=== PATIENT | male | born 1955 | race African-American/Black ===

== ENCOUNTER 2019-04-16 00:59 | Inpatient (IN) | payer BC, MEDICAID ==
[~2019-04-16] VITALS: Ht 185.4 cm; Wt 60.8 kg
--- NOTE | 2019-04-16 01:00 | NUR ---
PT [id number] FROM [facility] C/O SOB X 1 DAY, PATIENT HAD +CXR R SIDE PNEUMOTHORAX. PT AOX4. PT ON MONITOR IN BED 5. WILL CONTINUE TO MONITOR.
[2019-04-16] MEDS ORDERED: LIDOCAINE MPF 1%-EPI 1:200,000 30 ML VIAL IJ ONE (01:16)
--- NOTE | 2019-04-16 01:26 | NUR ---
PHLEB AT BEDSIDE FOR LAB DRAW
[2019-04-16] MEDS ORDERED: MORPHINE SULFATE INJ 4 MG/ML DISP.SYRIN ONE ×2 (01:27→05:02)
[2019-04-16] MEDS ORDERED: MORPHINE SULFATE INJ 2 MG/ML DISP.SYRIN IV ONE ×2 (01:30→05:00)
[2019-04-16] MEDS ORDERED: LIDOCAINE 1%-EPI 1:100,000 50 ML VIAL IJ ONE (01:30)
[2019-04-16 01:39] LABS: BASOPHILS # (AUTO) 0.1 /CMM (0.0-0.2); BASOPHILS % (AUTO) 1.7 % (0.0-2.0); HEMATOCRIT 38 % (39-51); HEMOGLOBIN 12.1 g/dL (13.5-17.5); LYMPHOCYTES % (AUTO) 20.1 % (20.0-44.0); MEAN CORPUSCULAR HGB CONC 32 g/dl (31.0-36.0); MEAN CORPUSCULAR VOLUME 90 fL (80-96); MONOCYTES # (AUTO) 0.4 /CMM (0.1-1.30); MONOCYTES % (AUTO) 8.7 % (2.0-12.0); NEUTROPHILS # (AUTO) 3.1 /CMM (1.8-8.9); NEUTROPHILS % (AUTO) 63.5 % (43.0-81.0); PLATELET COUNT (AUTO) 79 /CMM (150-450); RED BLOOD CELL COUNT(AUTO) 4.28 MIL/uL (4.5-6.0); WHITE BLOOD COUNT (AUTO) 4.9 K/uL (4.3-11.0)
[2019-04-16 01:40] LABS: CALCIUM, SERUM 8.7 mg/dL (8.5-10.1); CARBON DIOXIDE 30 mmol/L (21-32); CHLORIDE 106 mmol/L (98-107); CREATININE 1.1 mg/dL (0.6-1.3); GLUCOSE 110 mg/dL (74-106); POTASSIUM 4.2 mmol/L (3.5-5.1); SODIUM SERUM 143 mmol/L (136-145); UREA NITROGEN, BLOOD 33 mg/dL (7-18)
--- NOTE | 2019-04-16 01:45 | NUR ---
DR. SHEPARD AT BEDSIDE FOR CHEST TUBE PLACEMENT
[2019-04-16 02:49] LABS: EOSINOPHILS % (MANUAL) 2 % (0-4); LYMPHOCYTES % (MANUAL) 21 % (16-48); MONOCYTES % (MANUAL) 7 % (0-11.0); NEUTROPHILS % (MANUAL) 70 (42-76)
[2019-04-16] MEDS ORDERED: Z GUARD REMEDY 2 OZ OINT TP PRN (05:00)
[2019-04-16] MEDS ORDERED: ONDANSETRON HCL/PF 4 MG/2 ML VIAL IVP PRN (05:00)
[2019-04-16] MEDS ORDERED: MAGNESIUM HYDROXIDE 30 ML UDC PO PRN ×2 (05:00→08:30)
[2019-04-16] MEDS ORDERED: ACETAMINOPHEN 325 MG TABLET PO PRN ×2 (05:00→08:30)
[2019-04-16] MEDS ORDERED: MAG HYDROX/AL HYDROX/SIMETH 30 ML UDC PO PRN (05:00)
--- NOTE | 2019-04-16 05:10 | NUR ---
BED 321-1
--- NOTE | 2019-04-16 05:26 | NUR ---
PT RESTING COMFORTABLY IN BED. VSS. WILL CONTINUE TO MONITOR.
--- NOTE | 2019-04-16 05:30 | NUR ---
BED 327-2
--- NOTE | 2019-04-16 05:34 | NUR ---
REPORT GIVEN TO BILLY SOARES FOR SHARA
--- NOTE | 2019-04-16 06:10 | NUR ---
TAR HEATER OPERATOR OPENING NOTES: RECEIVED PT ON 10LPM VIA NONREBREATHER MASK AND IS TOLERATING WELL. PT ARRIVED WITH CHEST TUBE ON RIGHT UPPER/MEDIAL SIDE DRAINING SEROSANGUINEOUS/YELLOW FLUID. IV NOTED ON L FOREARM #18G AND IS PATENT AND INTACT. CURRENTLY H/L. DRESSING ON CHEST TUBE INTACT AND KEPT CLEAN AND DRY. BED ALARM ACTIVATED. BED KEPT IN LOW, LOCKED POSITION, AND SIDE RAILS X 2UP. 2CM H20 SUCTION NOTED ON CHEST TUBE DRY SUCTION WATER SEAL. NO AIR LEAKS. PT ON TELE BOX. READING SHOWS SINUS RHYTHM WITH BBBS.
[2019-04-16 06:15] VITALS: BP 146/94
[2019-04-16] MEDS ORDERED: MAGN400O6 PO (07:42)
[2019-04-16] MEDS ORDERED: IPRA0.2S9 IH (07:42)
[2019-04-16] MEDS ORDERED: LEVA1.2528 IH (07:42)
[2019-04-16] MEDS ORDERED: MULT-447 PO (07:42)
[2019-04-16] MEDS ORDERED: DILT120C87 PO (07:42)
[2019-04-16] MEDS ORDERED: CARV6.25 PO (07:42)
[2019-04-16] MEDS ORDERED: BISA10SU11 RC (07:42)
[2019-04-16] MEDS ORDERED: TAMS-12 PO (07:42)
[2019-04-16] MEDS ORDERED: BUDE10.2 IH (07:42)
[2019-04-16] MEDS ORDERED: FURO-144 PO (07:42)
[2019-04-16] MEDS ORDERED: ASPI-1152 PO (07:42)
[2019-04-16] MEDS ORDERED: ASCO500T9 PO (07:42)
[2019-04-16] MEDS ORDERED: GABA-532 PO (07:42)
[2019-04-16] MEDS ORDERED: SENN-168 PO (07:42)
[2019-04-16] MEDS ORDERED: ACET-2605 PO (07:42)
[2019-04-16] MEDS ORDERED: HYDR-4076 PO (07:42)
[2019-04-16] MEDS ORDERED: ACET-868 PO (07:42)
[2019-04-16] MEDS ORDERED: NA P133E RC (07:42)
[2019-04-16] MEDS ORDERED: PANT40TA2 PO (07:42)
--- NOTE | 2019-04-16 07:46 | NUR ---
ENTRY MANAGER CLOSING NOTES: PT REMAINS ON 10LPM VIA NONREBREATHER MASK AND IS TOLERATING WELL. PT REMAINS CHEST TUBE ON RIGHT UPPER/MEDIAL SIDE DRAINING SEROSANGUINEOUS/YELLOW FLUID. MARKED AT 650ML. IV NOTED ON L FOREARM #18G AND IS PATENT AND INTACT. CURRENTLY H/L. DRESSING ON CHEST TUBE INTACT AND KEPT CLEAN AND DRY. BED ALARM ACTIVATED. BED KEPT IN LOW, LOCKED POSITION, AND SIDE RAILS X 2UP. 2CM H20 SUCTION NOTED ON CHEST TUBE DRY SUCTION WATER SEAL. NO AIR LEAKS. PT ON TELE BOX. READING SHOWS SINUS RHYTHM WITH BBBS. WILL ENDORSED TO AM NURSE FOR SHARA.
--- NOTE | 2019-04-16 07:50 | NUR ---
ATLASSIAN ADMINISTRATOR NOTES PT IN BED, AWAKE, ALERT AND ORIENTED, WITH COMPLAINT OF SLIGHT SORENESS AT CHEST TUBE SITE AT RIGHT UPPER SIDE OF CHEST, NO SOB, ON 10LPM OF O2 VIA NON REBREATHER MASK, CALL LIGHT WITHIN REACH, KEPT COMFORTABLE, WILL CONTINUE TO MONITOR.
[2019-04-16 08:00] VITALS: BP 136/93
[2019-04-16] MEDS ORDERED: NA PHOS,M-B/NA PHOS,DI-BA 1 EA ENEMA RC PRN (08:30)
[2019-04-16] MEDS: HYDROCODONE/APAP 5/325MG 1 EACH TABLET PO PRN ×2 (08:30→14:21)
[2019-04-16] MEDS ORDERED: hydrALAZINE HCL 25 MG TABLET PO PRN (08:30)
[2019-04-16] MEDS ORDERED: IPRATROPIUM NEB FS 0.5 MG/2.5 ML AMPUL.NEB IH PRN (08:30)
[2019-04-16] MEDS ORDERED: BISACODYL SUPP (10 MG) 10 MG/SUPP.RECT SUPP.RECT RC PRN (08:30)
[2019-04-16] MEDS: DILTIAZEM HCL CD 120 MG PO SCH ×2 (09:00→09:37)
[2019-04-16] MEDS: ASCORBIC ACID 500 MG TABLET PO SCH ×2 (09:00→09:37)
[2019-04-16] MEDS: CARVEDILOL 6.25 MG TABLET PO SCH ×2 (09:37→21:00)
[2019-04-16] MEDS: GABAPENTIN 100 MG CAPSULE PO SCH ×3 (09:37→16:14)
[2019-04-16] MEDS: FUROSEMIDE 40 MG TABLET PO SCH (09:37)
[2019-04-16] MEDS: TAMSULOSIN 0.4 MG CAP.SR.24H PO SCH (09:37)
[2019-04-16] MEDS: MULTIVIT W/MINERALS 1 TAB TABLET PO SCH (09:37)
[2019-04-16] MEDS: ASPIRIN EC 81 MG TABLET.DR PO SCH (09:37)
[2019-04-16] MEDS: ENSURE ENLIVE 237 ML LIQUID (VANILLA) PO SCH ×3 (09:42→17:30)
--- NOTE | 2019-04-16 10:09 | NUR ---
MUFFLE OPERATOR NOTES PT IN BED, RESTING, STATED THAT HIS PAIN IS BETTER, SEEN BY DR. ARRIOLA AND DR. FUCHS, PLAN OF CARE DISCUSSED WITH PT, VERBALIZED UNDERSTANDING, NEEDS ATTENDED, NO SOB, WILL CONTINUE TO MONITOR.
[2019-04-16 12:00] VITALS: BP 105/73
[2019-04-16] MEDS ORDERED: ALBUTEROL FS 2.5 MG/0.5 ML VIAL.NEB NEB PRN (13:30)
[2019-04-16 16:00] VITALS: BP 97/59
[2019-04-16 16:30] VITALS: BP 140/87
--- NOTE | 2019-04-16 18:11 | NUR ---
PORCELAIN TECHNICIAN NOTES PT IN BED, AWAKE, ALERT AND ORIENTED, NO COMPLAINT OF PAIN AT THIS TIME, NO SOB, KEPT AT 1OLPM VIA NON REBREATHER MASK, PM MEDS GIVEN, CHEST TUBE AT RIGHT LATERAL UPPER CHEST IN PLACE, DRAINING MINIMALLY WITH YELLOWISH DRAIN, CALL LIGHT WITHIN REACH, ALL NEEDS ATTENDED.
--- NOTE | 2019-04-16 19:30 | NUR ---
RECEIVED PATIENT IN BED AWAKE. AO X 3, ABLE TO MAKE NEEDS KNOWN. NO ACUTE DISTRESS NOTED. DENIES ANY PAIN AT THIS TIME. IV SITE PATENT, INTACT; FLUSHED. RIGHT UPPER CHEST TUBE PATENT, INTACT; DRAINING SEROSANGUINOUS FLUID VIA SUCTION. SAFETY REMINDERS GIVEN. ON LOW BED WITH BILATERAL UPPER SIDE RAILS UP. CALL IVORY WITHIN EASY REACH. WILL CONTINUE TO MONITOR.
[2019-04-16 20:00] VITALS: BP 90/57
[2019-04-16] MEDS: SENNOSIDES 8.6 MG TABLET PO SCH (21:28)
[2019-04-17] VITALS: BP 90/56
[2019-04-17] MEDS: HYDROCODONE/APAP 5/325MG 1 EACH TABLET PO PRN ×3 (00:12→10:58)
[2019-04-17 04:00] VITALS: BP 118/74
--- NOTE | 2019-04-17 06:00 | NUR ---
PATIENT ASLEEP, EASILY AROUSABLE. RESPIRATIONS EVEN. NO SIGNS OF PAIN NOTED. CHEST TUBE INTACT; DRAINED 220 ML THIS SHIFT. DRESSING INTACT. DUE MED GIVEN WITH NO ASE NOTED. COREG HELD DUE TO DECREASED BP. NEEDS ATTENDED. SAFETY PRECAUTIONS AND COMFORT MEASURES IN PLACE. WILL GIVE REPORT TO DAY SHIFT FOR CONTINUITY OF CARE.
--- NOTE | 2019-04-17 07:26 | NUR ---
ECMO SPECIALIST NOTES PATIENT RECEIVED RESTING INSIDE ROOM. AWAKE, ALERT AND ORIENTED X 3, NO ACUTE DISTRESS. VERBALLY RESPONSIVE. PATIENT DENIES ANY PAIN OR DISCOMFORT. NO CHANGES IN LOC NOTED. PATIENT CALM AND RELAXED. CHEST TUBE CONNECTED ON RIGHT CHEST, WITH SEROSANGUINEOUS/YELLOW FLUID DRAINING IN CANISTER MARKED ON 1020 ML WHEN PATIENT WAS RECEIVED. O2 IN PLACE @ 10L/MIN VIA NRM. CONTINUE ON TELEMETRY, CONSUMER MARKETING MANAGER IN PLACE, SR 2ITH BBB. WILL CONTINUE TO MONITOR. BED LOCKED AND IN LOW POSITION. BILATERAL UPPER SIDE RAILS UP AND LOCKED. CALL LIGHT WITHIN EASY REACH
[2019-04-17 08:00] VITALS: BP 119/83
[2019-04-17 08:12] LABS: BASOPHILS % (AUTO) 1.4 % (0.0-2.0); EOSINOPHILS % (AUTO) 8.5 % (0.0-6.0); HEMATOCRIT 38 % (39-51); HEMOGLOBIN 11.8 g/dL (13.5-17.5); LYMPHOCYTES % (AUTO) 27.6 % (20.0-44.0); MEAN CORPUSCULAR HGB CONC 31 g/dl (31.0-36.0); MEAN CORPUSCULAR VOLUME 89 fL (80-96); MONOCYTES # (AUTO) 0.4 /CMM (0.1-1.30); MONOCYTES % (AUTO) 11.8 % (2.0-12.0); NEUTROPHILS # (AUTO) 1.8 /CMM (1.8-8.9); NEUTROPHILS % (AUTO) 50.7 % (43.0-81.0); PLATELET COUNT (AUTO) 106 /CMM (150-450); RED BLOOD CELL COUNT(AUTO) 4.29 MIL/uL (4.5-6.0); WHITE BLOOD COUNT (AUTO) 3.5 K/uL (4.3-11.0)
[2019-04-17 08:20] LABS: CALCIUM, SERUM 8.7 mg/dL (8.5-10.1); CREATININE 1.1 mg/dL (0.6-1.3); MAGNESIUM 1.9 mg/dL (1.8-2.4); PHOSPHORUS 3.9 mg/dL (2.5-4.9); POTASSIUM 4.8 mmol/L (3.5-5.1); THYROID STIMULATING HORMONE 1.279 uIU/mL (0.358-3.74)
[2019-04-17] MEDS: MULTIVIT W/MINERALS 1 TAB TABLET PO SCH (08:56)
[2019-04-17] MEDS: TAMSULOSIN 0.4 MG CAP.SR.24H PO SCH (08:56)
[2019-04-17] MEDS: ASPIRIN EC 81 MG TABLET.DR PO SCH (08:56)
[2019-04-17] MEDS: ENSURE ENLIVE 237 ML LIQUID (VANILLA) PO SCH ×3 (08:57→17:13)
[2019-04-17] MEDS: PANTOPRAZOLE 40 MG TABLET.DR PO SCH (08:57)
[2019-04-17] MEDS: DILTIAZEM HCL CD 120 MG PO SCH (08:57)
[2019-04-17] MEDS: CARVEDILOL 6.25 MG TABLET PO SCH ×2 (08:57→21:53)
[2019-04-17] MEDS: FUROSEMIDE 40 MG TABLET PO SCH (08:57)
[2019-04-17] MEDS: ASCORBIC ACID 500 MG TABLET PO SCH (08:57)
[2019-04-17] MEDS: GABAPENTIN 100 MG CAPSULE PO SCH ×3 (08:58→17:13)
--- NOTE | 2019-04-17 08:59 | NUR ---
BINGO FLOATER NOTES PATIENT SEEN AND EXAMINED BY DR BOATENG. WITH ORDER TO CLAMP CHEST TUBE, CHEST TUBE CLAMPED AT 1130 ML NEGRITA. NO ACUTE DISTRESS AT THIS TIME. WILL CONTINUE TO MONITOR
[2019-04-17] MEDS: FLUTICASONE/VILANTEROL 1 EACH BLST.W.DEV IH SCH (09:29)
--- NOTE | 2019-04-17 15:16 | NUR ---
MS RN NOTES PATIENT REFUSING TO HAVE CT CHEST DONE. RISKS AND BENEFITS EXPLAINED BUT TO NO AVAIL, PATIENT STRONGLY REFUSED X 3. DR. DEMARCO MADE AWARE, WITH NEW ORDER FOR STAT CHEST X-RAY, ORDER NOTED AND CARRIED OUT. PATIENT MADE AWARE AND VERBALIZED UNDERSTANDING. RADIOLOGY MADE AWARE. WILL CONTINUE TO MONITOR
[2019-04-17 16:00] VITALS: BP 116/77
--- NOTE | 2019-04-17 16:03 | NUR ---
MS RN NOTES STAT CHEST X-RAY RESULT RELAYED TO DR DEMARCO, WITH ORDER TO CONTINUE CHEST TUBE CLAMPING, TO AWAIT CHEST XRAY IN AM OF 04/18/19. IF PATIENT TO EXPERIENCE SOB, TO UNCLAMP AND RESUME CHEST TUBE SUCTION. ORDER NOTED AND CARRIED OUT. PATIENT MADE AWARE AND VERBALIZED UNDERSTANDING. WILL CONTINUE TO MONITOR
--- NOTE | 2019-04-17 18:39 | NUR ---
MS RN NOTES PATIENT RESTING INSIDE ROOM. AWAKE, ALERT AND ORIENTED X 4, NO ACUTE DISTRESS. NO SOB. DENIES ANY PAIN OR DISCOMFORT. PATIENT CALM AND RELAXED. CHEST TUBE IN PLACE ON RIGHT CHEST, CLAMPED, WITH SEROSANGUINEOUS/YELLOW FLUID DRAINING IN CANISTER MARKED AT [address] AND PATENT. PATIENT KEPT CLEAN, DRY AND COMFORTABLE. WILL ENDORSE TO INCOMING SHIFT FOR SHARA. BED LOCKED AND IN LOW POSITION. BILATERAL UPPER SIDE RAILS UP AND LOCKED. CALL LIGHT WITHIN EASY REACH
--- NOTE | 2019-04-17 20:12 | NUR ---
MS RN NOTES RECEIVED PATIENT AWAKE IN BED WITH NO DISTRESS NOTED. CALL LIGHT WITHIN REACH. RIGHT CHEST TUBED INTACT AND CLAMPED ORDERED. CANISTER REMAINS MARKED AT 1130ML. O2 @10LMP VIA NON REBREATHER MASK WITH NO RESPIRATORY DISTRESS NOTED. NO FURTHER C/O PAIN OR DISCOMFORT. ENCOURAGED USE OF CALL LIGHT FOR ASSISTANCE AND DEMONSTRATED GOOD UNDERSTANDING. BED IN LOW LOCK SETTING. ROOM FREE OF CLUTTER AND BELONGINGS KEPT NEAR BEDSIDE. WILL CONTINUE TO MONITOR.
[2019-04-17] MEDS: SENNOSIDES 8.6 MG TABLET PO SCH (21:53)
[2019-04-18] MEDS: HYDROCODONE/APAP 5/325MG 1 EACH TABLET PO PRN ×4 (00:34→21:35)
--- NOTE | 2019-04-18 06:51 | NUR ---
MS RN NOTES PATIENT ASLEEP IN BED WITH NO DISTRESS NOTED. CALL LIGHT WITHIN REACH. CHEST TUBE INTACT AND PATENT AND REMAINS CLAMPED ORDERED. NO RESPIRATORY DISTRESS NOTED. ALL DUE MEDS GIVEN ORDERED WITH NO ASE NOTED. NO FURTHER C/O PAIN OR DISCOMFORT. PERIPHERAL LINE INTACT AND PATENT. BED IN LOW LOCK SETTING. WILL ENDORSE TO ONCOMING SHIFT.
[2019-04-18] MEDS: PANTOPRAZOLE 40 MG TABLET.DR PO SCH (07:30)
--- NOTE | 2019-04-18 07:32 | NUR ---
MS RN NOTES PATIENT RECEIVED RESTING INSIDE ROOM. AWAKE, ALERT AND ORIENTED X 4, NO ACUTE DISTRESS. NO SOB. DENIES ANY PAIN OR DISCOMFORT. CHEST TUBE ON RIGHT CHEST CLAMPED, CONNECTED TO CANISTER MARKED AT 1130 ML. IV INTACT AND PATENT. WILL CONTINUE TO MONITOR. BED LOCKED AND IN LOW POSITION. BILATERAL UPPER SIDE RAILS UP AND LOCKED. CALL LIGHT WITHIN EASY REACH.
[2019-04-18 08:00] VITALS: BP 125/89
[2019-04-18] MEDS: ENSURE ENLIVE 237 ML LIQUID (VANILLA) PO SCH ×3 (08:25→17:58)
[2019-04-18] MEDS: FLUTICASONE/VILANTEROL 1 EACH BLST.W.DEV IH SCH (08:25)
[2019-04-18] MEDS: ASPIRIN EC 81 MG TABLET.DR PO SCH (08:25)
[2019-04-18] MEDS: GABAPENTIN 100 MG CAPSULE PO SCH ×3 (08:25→16:26)
[2019-04-18] MEDS: TAMSULOSIN 0.4 MG CAP.SR.24H PO SCH (08:25)
[2019-04-18] MEDS: MULTIVIT W/MINERALS 1 TAB TABLET PO SCH (08:25)
[2019-04-18] MEDS: FUROSEMIDE 40 MG TABLET PO SCH (08:26)
[2019-04-18] MEDS: CARVEDILOL 6.25 MG TABLET PO SCH ×2 (08:26→21:23)
[2019-04-18] MEDS: DILTIAZEM HCL CD 120 MG PO SCH (08:32)
[2019-04-18] MEDS: ASCORBIC ACID 500 MG TABLET PO SCH (08:33)
--- NOTE | 2019-04-18 09:00 | NUR ---
MS RN NOTES RIGHT CHEST TUBE REMOVED BY DR BOATENG, MINIMAL BLEEDING NOTED ON SITE. PRESSURE DRESSING APPLIED BY DR BOATENG, UNABLE TO TAKE PICTURE FOR WOUND DOCUMENTATION. WITH NEW ORDER FOR CHEST XRAY APPROXIMATELY 2 HOURS POST CHEST TUBE REMOVAL. ORDER NOTED AND CARRIED OUT. PATIENT MADE AWARE AND VERBALIZED UNDERSTANDING. RADIOLOGY MADE AWARE FOR CHEST X-RAY TO BE DONE AT 1100. WILL CONTINUE TO MONITOR
[2019-04-18] MEDS: SPIRONOLACTONE 25 MG TABLET PO SCH (09:10)
[2019-04-18] MEDS: LISINOPRIL (20MG) 20 MG TABLET PO SCH ×2 (09:10→16:26)
[2019-04-18 16:00] VITALS: BP 124/75
--- NOTE | 2019-04-18 19:15 | NUR ---
MS RN CLOSING NOTES PATIENT AWAKE RESTING IN BED WITH MODERATE HIGH BACK REST POSITION. A/O X4. ABLE TO MAKE NEEDS KNOWN. NO SOB NOTED. IV ACCESS ON LEFT FA #18 ON SALINE LOCK. DRESSING IN PLACE ON S/P RIGHT CHEST TUBE REMOVAL. NO BLEEDING NOTED. ALL NURSING NEEDS AND CARE ATTENDED WELL. SAFETY MEASURES KEPT IN PLACE. BED IN LOW LOCKED POSITION WITH SIDE RAILS X2. BEDSIDE TABLE AND CALL LIGHT WITHIN REACH. ENDORSED TO RED CROSS EXECUTIVE DIRECTOR NURSE FOR SHARA.
--- NOTE | 2019-04-18 19:15 | NUR ---
MS RN NOTES RECEIVED PT IN BED AWAKE AND ABLE TO MAKE NEEDS KNOWN. PT A/O X3. RESPIRATIONS EVEN AND UNLABORED WITH NO S/S OF ACUTE DISTRESS OR SOB NOTED. PT DENIES PAIN AT THIS TIME. PT WITH LFA #18G IV PATENT AND INTACT AND SL. SAFETY MEASURES IN PLACE WITH BED IN LOWEST LOCKED POSITION WITH SIDE RAILS UP X2. CALL LIGHT WITHIN REACH. WILL CONTINUE TO MONITOR.
[2019-04-18 20:29] VITALS: BP 118/73
[2019-04-18] MEDS: SENNOSIDES 8.6 MG TABLET PO SCH (21:34)
[2019-04-19] MEDS: HYDROCODONE/APAP 5/325MG 1 EACH TABLET PO PRN ×4 (04:57→22:16)
--- NOTE | 2019-04-19 07:30 | NUR ---
RN MS NOTES PT IN BED, AWAKE, ALERT AND ORIENTED, DENIES PAIN, RESPIRATIONS NORMAL, CALL LIGHT WITHIN REACH, NEEDS ATTENDED, KEPT COMFORTABLE IN BED.
[2019-04-19 08:00] VITALS: BP 131/69
[2019-04-19] MEDS: FLUTICASONE/VILANTEROL 1 EACH BLST.W.DEV IH SCH (08:03)
[2019-04-19] MEDS: PANTOPRAZOLE 40 MG TABLET.DR PO SCH (08:04)
[2019-04-19] MEDS: GABAPENTIN 100 MG CAPSULE PO SCH ×3 (08:04→16:10)
[2019-04-19] MEDS: ASPIRIN EC 81 MG TABLET.DR PO SCH (08:04)
[2019-04-19] MEDS: SPIRONOLACTONE 25 MG TABLET PO SCH (08:04)
[2019-04-19] MEDS: TAMSULOSIN 0.4 MG CAP.SR.24H PO SCH (08:04)
[2019-04-19] MEDS: MULTIVIT W/MINERALS 1 TAB TABLET PO SCH (08:04)
[2019-04-19] MEDS: LISINOPRIL (20MG) 20 MG TABLET PO SCH ×2 (08:05→16:12)
[2019-04-19] MEDS: FUROSEMIDE 40 MG TABLET PO SCH (08:05)
[2019-04-19] MEDS: CARVEDILOL 6.25 MG TABLET PO SCH ×2 (08:06→21:28)
[2019-04-19] MEDS: ENSURE ENLIVE 237 ML LIQUID (VANILLA) PO SCH ×3 (08:06→17:12)
[2019-04-19 08:35] LABS: BASOPHILS % (AUTO) 1.1 % (0.0-2.0); EOSINOPHILS % (AUTO) 8.4 % (0.0-6.0); HEMATOCRIT 39 % (39-51); HEMOGLOBIN 12.1 g/dL (13.5-17.5); LYMPHOCYTES # (AUTO) 1.1 /CMM (0.8-4.8); LYMPHOCYTES % (AUTO) 23.6 % (20.0-44.0); MEAN CORPUSCULAR HGB CONC 31 g/dl (31.0-36.0); MEAN CORPUSCULAR VOLUME 89 fL (80-96); MONOCYTES # (AUTO) 0.5 /CMM (0.1-1.30); MONOCYTES % (AUTO) 11.7 % (2.0-12.0); NEUTROPHILS # (AUTO) 2.5 /CMM (1.8-8.9); NEUTROPHILS % (AUTO) 55.2 % (43.0-81.0); PLATELET COUNT (AUTO) 126 /CMM (150-450); RED BLOOD CELL COUNT(AUTO) 4.39 MIL/uL (4.5-6.0); WHITE BLOOD COUNT (AUTO) 4.6 K/uL (4.3-11.0)
[2019-04-19 08:42] LABS: POTASSIUM 4.7 mmol/L (3.5-5.1)
[2019-04-19] MEDS ORDERED: CARV6.25 PO (08:59)
[2019-04-19] MEDS ORDERED: LISI-603 PO (08:59)
[2019-04-19] MEDS: ASCORBIC ACID 500 MG TABLET PO SCH (09:00)
--- NOTE | 2019-04-19 13:00 | NUR ---
RN MS NOTES PT IN BED, AWAKE, ALERT AND ORIENTED, SEEN AND EXAMINED BY DR. BOATENG, PLAN OF CARE DISCUSSED WITH PT, DISCHARGE ORDER GIVEN BY MD, PLAN FOR TRANSFER BACK TO [facility], PT REFUSED TO GO BACK TO HIS PREVIOUS SNF, DIVIDEND CLERK INFORMED, AWAITING PLACEMENT.
[2019-04-19 16:00] VITALS: BP 117/72
--- NOTE | 2019-04-19 17:31 | NUR ---
RN MS NOTES PT IN BED, AWAKE, ALERT AND ORIENTED, PAIN MEDICATION GIVEN FOR PAIN MANAGEMENT, NOT IN DISTRESS, TOLERATING ROOM AIR WELL, CALL LIGHT WITHIN REACH, ASSISTED WITH NEEDS, PM MEDS GIVEN ORDERED.
--- NOTE | 2019-04-19 19:15 | NUR ---
MS RN NOTES RECEIVED PT IN BED ASLEEP BUT EASILY AWOKEN VERBALLY OR BY TOUCH. PT A/O X3 AND ABLE TO MAKE NEEDS KNOWN. RESPIRATIONS EVEN AND UNLABORED WITH NO S/S OF ACUTE DISTRESS OR SOB NOTED. PT DENIES PAIN AT THIS TIME. PT WITH LFA #18G IV PATENT AND INTACT AND SL. SAFETY MEASURES IN PLACE WITH BED IN LOWEST LOCKED POSITION WITH SIDE RAILS UP X2. CALL LIGHT WITHIN REACH. WILL CONTINUE TO MONITOR.
[2019-04-19 20:00] VITALS: BP 109/64
[2019-04-19] MEDS: SENNOSIDES 8.6 MG TABLET PO SCH (21:32)
--- NOTE | 2019-04-20 06:51 | NUR ---
MS RN NOTES PT IN BED ASLEEP BUT EASILY AWOKEN VERBALLY OR BY TOUCH. PT A/O X3 AND ABLE TO MAKE NEEDS KNOWN. RESPIRATIONS EVEN AND UNLABORED WITH NO S/S OF ACUTE DISTRESS OR SOB NOTED THROUGHOUT SHIFT. PT DENIES PAIN AT THIS TIME. PT WITH LFA #18G IV PATENT AND INTACT AND SL. PT KEPT CLEAN, DRY, AND COMFORTABLE. SAFETY MEASURES IN PLACE WITH BED IN LOWEST LOCKED POSITION WITH SIDE RAILS UP X2. CALL LIGHT WITHIN REACH. WILL ENDORSE TO ONCOMING NURSE FOR SHARA.
[2019-04-20] MEDS: PANTOPRAZOLE 40 MG TABLET.DR PO SCH ×2 (07:30→07:42)
--- NOTE | 2019-04-20 07:30 | NUR ---
RN MS NOTES PT IN BED, AWAKE, ALERT AND ORIENTED, WITH COMPLAINT OF BACK PAIN, RESPIRATIONS NORMAL, CALL LIGHT WITHIN REACH, NEEDS ATTENDED.
[2019-04-20] MEDS: HYDROCODONE/APAP 5/325MG 1 EACH TABLET PO PRN ×3 (07:42→16:48)
[2019-04-20 08:00] VITALS: BP 138/88
[2019-04-20] MEDS: TAMSULOSIN 0.4 MG CAP.SR.24H PO SCH (08:20)
[2019-04-20] MEDS: MULTIVIT W/MINERALS 1 TAB TABLET PO SCH (08:20)
[2019-04-20] MEDS: FUROSEMIDE 40 MG TABLET PO SCH (08:20)
[2019-04-20] MEDS: SPIRONOLACTONE 25 MG TABLET PO SCH (08:20)
[2019-04-20] MEDS: ASPIRIN EC 81 MG TABLET.DR PO SCH (08:20)
[2019-04-20] MEDS: LISINOPRIL (20MG) 20 MG TABLET PO SCH ×2 (08:20→16:49)
[2019-04-20] MEDS: GABAPENTIN 100 MG CAPSULE PO SCH ×3 (08:20→16:48)
[2019-04-20] MEDS: CARVEDILOL 6.25 MG TABLET PO SCH ×2 (08:21→22:41)
[2019-04-20] MEDS: ENSURE ENLIVE 237 ML LIQUID (VANILLA) PO SCH ×3 (08:22→18:16)
[2019-04-20] MEDS: FLUTICASONE/VILANTEROL 1 EACH BLST.W.DEV IH SCH (08:23)
[2019-04-20] MEDS: ASCORBIC ACID 500 MG TABLET PO SCH (09:00)
--- NOTE | 2019-04-20 13:00 | NUR ---
RN MS NOTES PT IN BED, ASLEEP, EASY TO AROUSE, NO COMPLAINT AT THIS TIME, BREATHING PATTERN NORMAL, CALL LIGHT WITHIN REACH, TOLERATING CURRENT DIET WELL.
[2019-04-20 16:00] VITALS: BP 100/66
--- NOTE | 2019-04-20 18:41 | NUR ---
RN MS NOTES PT IN BED, ASLEEP, EASY TO AROUSE, ALERT AND ORIENTED, PAIN MEDS GIVEN FOR PAIN MANAGEMENT, TOLERATES CURRENT DIET, CALL LIGHT WITHIN REACH, ALL NEEDS ATTENDED.
--- NOTE | 2019-04-20 19:50 | NUR ---
RN OPENING NOTES RECEIVED REPORT FROM DAYSHIFT RN MARIAM. FOUND Pt AWAKE, RESTING IN BED. NO S/S OF ACUTE DISTRESS OR SOB NOTED. RESPIRATIONS EVEN AND UNLABORED. ON 10L SIMPLE MASK. Pt IS A/OX4, VERBAL, ABLE TO MAKE NEEDS KNOWN. IV ACCESS ON LFA #18G, SL. SAFETY MEASURES IN PLACE. BED LOW, LOCKED, HOB ELEVATED, SIDE RAILS UP, CALL LIGHT AND BEDSIDE TABLE WITHIN REACH. WILL CONTINUE TO MONITOR Pt's CONDITION AND SAFETY THROUGHOUT THE NIGHT.
[2019-04-20 20:00] VITALS: BP 125/68
[2019-04-20] MEDS: SENNOSIDES 8.6 MG TABLET PO SCH (22:41)
[2019-04-21] MEDS: HYDROCODONE/APAP 5/325MG 1 EACH TABLET PO PRN ×5 (02:04→22:11)
[2019-04-21 06:50] LABS: CALCIUM, SERUM 9.2 mg/dL (8.5-10.1); CREATININE 1.1 mg/dL (0.6-1.3); POTASSIUM 5.1 mmol/L (3.5-5.1)
--- NOTE | 2019-04-21 06:55 | NUR ---
RN CLOSING NOTES NO SIGNIFICANT CHANGES IN Pt's CONDITION. NO S/S OF ACUTE DISTRESS OR SOB NOTED DURING THE NIGHT. Pt IS AWAKE, RESTING IN BED. RESPIRATIONS EVEN AND UNLABORED. WILL ENDORSE TO DAYSHIFT RN FOR Pt's SHARA.
[2019-04-21] MEDS: PANTOPRAZOLE 40 MG TABLET.DR PO SCH (06:58)
--- NOTE | 2019-04-21 07:31 | NUR ---
ECHO REPORT IS DONE AWAITING REPORTS TO CROSS OVER TO [facility]
--- NOTE | 2019-04-21 07:53 | NUR ---
MS RN OPENING NOTES RECEIVED PT AWAKE IN BED. AO X3-4. TOLERATING RA AT THIS MOMENT, WITH NO ACUTE RESPIRATORY DISTRESS NOTED, OXYGEN SATURATION AT 94%. PT STATED IN PAIN BUT TOLERABLE, AND PT AWARE JUST HAD PAIN MEDICINE AT 0700. PT DENIES ANY CONCERNS AND QUESTIONS AT THIS MOMENT. PT AWARE HE'S WAITING FOR A NEW PLACEMENT. PIV LFA G18 SL, FLUSHED WITH NS, INTACT AND OPERATIONAL. PT KEPT COMFORTABLE. PT'S BED IN LOWEST, LOCKED POSITION WITH SRX2. CALL LIGHT AND FLUID KEPT WITHIN REACH. WILL CONTINUE PLAN OF CARE.
[2019-04-21 08:00] VITALS: BP 117/63
[2019-04-21] MEDS: ENSURE ENLIVE 237 ML LIQUID (VANILLA) PO SCH ×3 (08:30→17:28)
[2019-04-21] MEDS: ASCORBIC ACID 500 MG TABLET PO SCH (09:00)
[2019-04-21] MEDS: MULTIVIT W/MINERALS 1 TAB TABLET PO SCH (09:22)
[2019-04-21] MEDS: CARVEDILOL 6.25 MG TABLET PO SCH ×2 (09:22→21:00)
[2019-04-21] MEDS: TAMSULOSIN 0.4 MG CAP.SR.24H PO SCH (09:23)
[2019-04-21] MEDS: SPIRONOLACTONE 25 MG TABLET PO SCH (09:23)
[2019-04-21] MEDS: FUROSEMIDE 40 MG TABLET PO SCH (09:23)
[2019-04-21] MEDS: ASPIRIN EC 81 MG TABLET.DR PO SCH (09:23)
[2019-04-21] MEDS: LISINOPRIL (20MG) 20 MG TABLET PO SCH (09:31)
[2019-04-21] MEDS: GABAPENTIN 100 MG CAPSULE PO SCH ×3 (09:34→17:28)
--- NOTE | 2019-04-21 09:35 | NUR ---
MS RN NOTES PT'S FLUTICASONE/BREO MEDICINE SCHEDULED AT 0900 NOT PRESENT ON THE UNIT. GIVING OFFICER PRESENT AT THE UNIT MADE AWARE AND STATED HE WILL BRING IT UP. AWAITING FOR MEDICINE TO ARRIVE.
--- NOTE | 2019-04-21 10:35 | NUR ---
MS RN NOTES PHARMACY CALLED AND FOLLOWED UP WITH ELSA MEJÍA. PHARMACY [facility] ON THE PHONE SAYING THEY WILL DELIVER SOON THEY CAN. STILL AWAITING FOR MEDICINE TO ARRIVE.
[2019-04-21] MEDS: FLUTICASONE/VILANTEROL 1 EACH BLST.W.DEV IH SCH (11:24)
--- NOTE | 2019-04-21 13:00 | NUR ---
MS RN NOTES PT REQUESTED PAIN MEDICATION. PRN NORCO 5/325 GIVEN ORDERED PER ORDERED PAIN SCALE. WILL CONTINUE TO MONITOR.
[2019-04-21 16:00] VITALS: BP 108/62
--- NOTE | 2019-04-21 18:40 | NUR ---
MS RN CLOSING NOTES PT AWAKE IN BED. AO X3-4. TOLERATING RA AT THIS MOMENT, WITH NO ACUTE RESPIRATORY DISTRESS NOTED, OXYGEN SATURATION AT 94-96%. PT DENIES ANY PAIN OR DISCOMFORT AT THIS TIME. PIV LFA G18 SL, FLUSHED WITH NS, INTACT AND OPERATIONAL. ALL NEEDS AND CARE PROVIDED. PT KEPT COMFORTABLE. PT'S BED IN LOWEST, LOCKED POSITION WITH SRX2. CALL LIGHT AND FLUID KEPT WITHIN REACH. WILL ENDORSE TO INCOMING NURSE FOR SHARA.
--- NOTE | 2019-04-21 19:55 | NUR ---
RN OPENING NOTES RECEIVED REPORT FROM DAYSHIFT RN BLAS. FOUND Pt AWAKE, RESTING IN BED. NO S/S OF ACUTE DISTRESS OR SOB NOTED. RESPIRATIONS EVEN AND UNLABORED. ON 10L SIMPLE MASK. Pt IS A/OX4, VERBAL, ABLE TO MAKE NEEDS KNOWN. IV ACCESS ON LFA #18G, SL. SAFETY MEASURES IN PLACE. BED LOW, LOCKED, HOB ELEVATED, SIDE RAILS UP, CALL LIGHT AND BEDSIDE TABLE WITHIN REACH. WILL CONTINUE TO MONITOR Pt's CONDITION AND SAFETY THROUGHOUT THE NIGHT.
[2019-04-21 20:00] VITALS: BP 109/62
[2019-04-21] MEDS: SENNOSIDES 8.6 MG TABLET PO SCH (22:00)
[2019-04-22] MEDS: HYDROCODONE/APAP 5/325MG 1 EACH TABLET PO PRN ×4 (06:20→21:36)
--- NOTE | 2019-04-22 06:55 | NUR ---
RN CLOSING NOTES NO SIGNIFICANT CHANGES IN Pt's CONDITION. NO S/S OF ACUTE DISTRESS OR SOB NOTED DURING THE NIGHT. Pt IS NOW ON 8L SIMPLE MASK, O2 SAT 99-100%. Pt IS AWAKE, RESTING IN BED. RESPIRATIONS EVEN AND UNLABORED. SAFETY MEASURES IN PLACE. WILL ENDORSE TO DAYSHIFT RN FOR Pt's SHARA.
--- NOTE | 2019-04-22 07:20 | NUR ---
MS RN OPENING NOTES RECEIVED PT AWAKE IN BED. AO X3-4. ON SUPPLEMENTARY OXYGEN 8L VIA SIMPLE MASK, WITH NO ACUTE RESPIRATORY DISTRESS NOTED. PT DENIES ANY PAIN OR DISCOMFORT AT TIS MOMENT. PT DENIES ANY CONCERNS AND QUESTIONS AT THIS MOMENT. PIV LFA G18 SL, FLUSHED WITH NS, INTACT AND OPERATIONAL. PT KEPT COMFORTABLE. PT'S BED IN LOWEST, LOCKED POSITION WITH SRX3. CALL LIGHT AND FLUID KEPT WITHIN REACH. WILL CONTINUE PLAN OF CARE.
[2019-04-22] MEDS: PANTOPRAZOLE 40 MG TABLET.DR PO SCH (08:10)
[2019-04-22] MEDS: ENSURE ENLIVE 237 ML LIQUID (VANILLA) PO SCH ×3 (08:10→18:25)
[2019-04-22] MEDS: TAMSULOSIN 0.4 MG CAP.SR.24H PO SCH (08:12)
[2019-04-22] MEDS: GABAPENTIN 100 MG CAPSULE PO SCH ×3 (08:12→16:56)
[2019-04-22] MEDS: FUROSEMIDE 40 MG TABLET PO SCH (08:13)
[2019-04-22] MEDS: SPIRONOLACTONE 25 MG TABLET PO SCH (08:13)
[2019-04-22] MEDS: ASPIRIN EC 81 MG TABLET.DR PO SCH (08:13)
[2019-04-22] MEDS: MULTIVIT W/MINERALS 1 TAB TABLET PO SCH (08:13)
[2019-04-22] MEDS: FLUTICASONE/VILANTEROL 1 EACH BLST.W.DEV IH SCH (08:17)
[2019-04-22] MEDS: LISINOPRIL (20MG) 20 MG TABLET PO SCH (08:19)
[2019-04-22] MEDS: CARVEDILOL 6.25 MG TABLET PO SCH ×2 (08:19→21:00)
[2019-04-22] MEDS: ASCORBIC ACID 500 MG TABLET PO SCH (08:20)
[2019-04-22 08:22] VITALS: BP 111/77
--- NOTE | 2019-04-22 10:30 | NUR ---
MS RN NOTES PT REQUESTED FOR COLACE PRN, STATING HIS LAST BOWEL MOVEMENT IS 2-3DAYS AGO. DR BOATENG MADE AWARE, AWAITING FOR RESPONSE.
--- NOTE | 2019-04-22 10:44 | NUR ---
MS RN NOTES RECEIVED RESULT OF CXRAY THIS MORNING. RELAYED RESULT TO DR BOATENG. AWAITING FOR RESPONSE.
[2019-04-22] MEDS: DOCUSATE SODIUM 100 MG CAPSULE PO SCH (11:04)
--- NOTE | 2019-04-22 11:15 | NUR ---
MS RN NOTES /KILO RESPONDED REGARDING CXRAY RESULT THIS MORNING. NO NEW ORDERS NOTED. PT MADE AWARE WILL CONTINUE TO MONITOR.
[2019-04-22 16:00] VITALS: BP 101/65
--- NOTE | 2019-04-22 18:34 | NUR ---
MS RN CLOSING NOTES PT AWAKE IN BED. A/O X3-4. ON SUPPLEMENTARY OXYGEN 8L VIA SIMPLE MASK, WITH NO ACUTE RESPIRATORY DISTRESS NOTED. PT DENIES ANY PAIN OR DISCOMFORT AT TIS MOMENT. PIV LFA G18 SL, FLUSHED WITH NS, INTACT AND OPERATIONAL. ALL NEEDS AND CARE ATTENDED. PT KEPT COMFORTABLE. PT'S BED IN LOWEST, LOCKED POSITION WITH SRX3. CALL LIGHT AND FLUID KEPT WITHIN REACH. WILL ENDORSE TO INCOMING NIGHT NURSE FOR SHARA.
--- NOTE | 2019-04-22 19:30 | NUR ---
rn notes received p. awake on bed, a/ox3, dressing on the right side of chest tube site ( S/p chest tube removal) dry and intact, denies pain, no sob, call light within reach, siderailsupx2, continue to monitor
[2019-04-22 20:00] VITALS: BP_SYST 92; BP_DIAS 59; BP_DIAS 69
[2019-04-22] MEDS: SENNOSIDES 8.6 MG TABLET PO SCH (21:39)
--- NOTE | 2019-04-22 21:40 | NUR ---
RN NOTES COMPLAINED OF PAIN ON CHEST TUBE SITE- NOROC 5/325MG PO GIVEN ORDERED, V/S STABLE
[2019-04-23] MEDS: HYDROCODONE/APAP 5/325MG 1 EACH TABLET PO PRN ×4 (04:41→19:28)
--- NOTE | 2019-04-23 04:41 | NUR ---
RN NOTES COMPLAINED OF PAIN ON HIS RIGHT SIDE (S/P CHEST TUBE REMOVAL)- NOROC 5/325MG PO GIVEN ORDERED, V/S STABLE
--- NOTE | 2019-04-23 06:38 | NUR ---
RN NOTES AWAKE, MORNING CARE RENDERED, DENIES PAIN AT THIS TIME, NO SOB, CALL LIGHT WITHIN REACH, [id number], PT. NEEDS ATTENDED
--- NOTE | 2019-04-23 07:25 | NUR ---
MS RN OPENING NOTES RECEIVED PT AWAKE IN BED. A/O X4. ON SUPPLEMENTARY OXYGEN 6L VIA SIMPLE MASK, WITH NO ACUTE RESPIRATORY DISTRESS NOTED. PT DENIES ANY PAIN OR DISCOMFORT AT THIS MOMENT. PT DENIES ANY CONCERNS AND QUESTIONS AT THIS MOMENT; PT STILL WAITING FOR PLACEMENT AND LOOKING FORWARD TO COORDINATE WITH CM AGAIN TODAY FOR DISCHARGE. PIV LFA G18 SL, FLUSHED WITH NS, INTACT AND OPERATIONAL. PT KEPT COMFORTABLE. PT'S BED IN LOWEST, LOCKED POSITION WITH SRX3. CALL LIGHT AND FLUID KEPT WITHIN REACH. WILL CONTINUE PLAN OF CARE.
[2019-04-23] MEDS: PANTOPRAZOLE 40 MG TABLET.DR PO SCH (07:30)
[2019-04-23 08:00] VITALS: BP 115/75
[2019-04-23] MEDS: SPIRONOLACTONE 25 MG TABLET PO SCH (08:05)
[2019-04-23] MEDS: FUROSEMIDE 40 MG TABLET PO SCH (08:05)
[2019-04-23] MEDS: GABAPENTIN 100 MG CAPSULE PO SCH ×3 (08:05→17:16)
[2019-04-23] MEDS: ENSURE ENLIVE 237 ML LIQUID (VANILLA) PO SCH ×3 (08:05→17:16)
[2019-04-23] MEDS: TAMSULOSIN 0.4 MG CAP.SR.24H PO SCH (08:06)
[2019-04-23] MEDS: ASPIRIN EC 81 MG TABLET.DR PO SCH (08:06)
[2019-04-23] MEDS: FLUTICASONE/VILANTEROL 1 EACH BLST.W.DEV IH SCH (08:06)
[2019-04-23] MEDS: CARVEDILOL 6.25 MG TABLET PO SCH ×2 (08:07→21:00)
[2019-04-23] MEDS: DOCUSATE SODIUM 100 MG CAPSULE PO SCH (08:11)
[2019-04-23] MEDS: ASCORBIC ACID 500 MG TABLET PO SCH (08:12)
[2019-04-23] MEDS: LISINOPRIL (20MG) 20 MG TABLET PO SCH (08:12)
[2019-04-23] MEDS: MULTIVIT W/MINERALS 1 TAB TABLET PO SCH (08:12)
[2019-04-23 16:00] VITALS: BP 102/69
--- NOTE | 2019-04-23 18:55 | NUR ---
MS RN CLOSING NOTES PT AWAKE IN BED. A/O X4. ON SUPPLEMENTARY OXYGEN 6L VIA SIMPLE MASK, WITH NO ACUTE RESPIRATORY DISTRESS NOTED. PT DENIES ANY PAIN OR DISCOMFORT AT THIS MOMENT. PT STILL WAITING FOR PLACEMENT; MANAGER CRITICAL CARE UNIT/JANNETTE AWARE, AND STILL LOOKING. PIV LFA G18 SL, FLUSHED WITH NS, INTACT AND OPERATIONAL. ALL NEEDS AND CARE ATTENDED. PT KEPT COMFORTABLE. PT'S BED IN LOWEST, LOCKED POSITION WITH SRX3. CALL LIGHT AND FLUID KEPT WITHIN REACH. WILL ENDORSE TO INCOMING NIGHT NURSE FOR SHARA.
--- NOTE | 2019-04-23 19:20 | NUR ---
MS/RN OPENING NOTES PT RECEIVED AWAKE, SITTING UP IN BED. A/OX4. ON ROOM AIR, BREATHING EVEN AND UNLABORED. SUPPLEMENTAL O2 6L VIA MASK NEARBY PRN. NO C/O SOB. WITH C/O PAIN TO RIGHT SIDE WHERE CHEST TUBE WAS REMOVED, REQUESTING NORCO. IV TO LFA PATENT AND INTACT. HOB ELEVATED. SIDE RAILS UPX3. BED IN LOW/LOCKED POSITION WITH CALL LIGHT IN REACH. WILL CONTINUE TO MONITOR
[2019-04-23 20:00] VITALS: BP 141/75
[2019-04-23 20:23] VITALS: BP 141/75
[2019-04-23] MEDS: SENNOSIDES 8.6 MG TABLET PO SCH (21:03)
[2019-04-24] MEDS: HYDROCODONE/APAP 5/325MG 1 EACH TABLET PO PRN ×4 (01:17→22:48)
--- NOTE | 2019-04-24 01:20 | NUR ---
MS/RN NOTES PT C/O 04/19 PAIN TO BILATERAL FEET, REQUESTING PRN NORCO. ADMINISTERED ORDERED AND OFFERED TO HELP REPOSITION PT WHICH PT REFUSED AT THIS TIME. WILL CONTINUE TO MONITOR
--- NOTE | 2019-04-24 07:15 | NUR ---
MS/RN CLOSING NOTES PT ASLEEP, RESTING COMFORTABLY IN BED. A/OX3. RESPONSIVE TO NAME. ON ROOM AIR, BREATHING EVEN AND UNLABORED. NO C/O SOB, WITH MODERATE PAIN DURING SHIFT, MANAGED WELL WITH PRN NORCO. HOB ELEVATED. IV TO LFA PATENT AND INTACT. NO SIGNIFICANT CHANGES OVERNIGHT. ALL NEEDS MET AND ANTICIPATED. BED IN LOW/LOCKED POSITION WITH CALL LIGHT IN REACH. SIDE RAILS UPX2. DRESSING TO RIGHT LATERAL CHEST C/D/I, NO DRAINAGE NOTED. WILL ENDORSE TO DAY SHIFT RN SHARA.
[2019-04-24] MEDS: PANTOPRAZOLE 40 MG TABLET.DR PO SCH (07:30)
[2019-04-24 08:00] VITALS: BP 108/72
--- NOTE | 2019-04-24 08:00 | NUR ---
m/s mica sizer: initial assessment received pt in bed awake, a/ox4, pt wants to go home; still awaiting for acceptance from other snf. pt doesn't want to go back to [facility]. case management making arrangement. no c/o pain or any discomfort. instructed to call for assistance.
[2019-04-24] MEDS: ASPIRIN EC 81 MG TABLET.DR PO SCH (08:14)
[2019-04-24] MEDS: TAMSULOSIN 0.4 MG CAP.SR.24H PO SCH (08:14)
[2019-04-24] MEDS: ENSURE ENLIVE 237 ML LIQUID (VANILLA) PO SCH ×3 (08:14→17:29)
[2019-04-24] MEDS: MULTIVIT W/MINERALS 1 TAB TABLET PO SCH (08:14)
[2019-04-24] MEDS: FLUTICASONE/VILANTEROL 1 EACH BLST.W.DEV IH SCH (08:14)
[2019-04-24] MEDS: GABAPENTIN 100 MG CAPSULE PO SCH ×3 (08:15→17:27)
[2019-04-24] MEDS: DOCUSATE SODIUM 100 MG CAPSULE PO SCH (08:15)
[2019-04-24] MEDS: FUROSEMIDE 40 MG TABLET PO SCH (08:15)
[2019-04-24] MEDS: SPIRONOLACTONE 25 MG TABLET PO SCH (08:15)
[2019-04-24] MEDS: LISINOPRIL (20MG) 20 MG TABLET PO SCH (08:16)
[2019-04-24] MEDS: CARVEDILOL 6.25 MG TABLET PO SCH ×2 (08:16→21:00)
[2019-04-24] MEDS: ASCORBIC ACID 500 MG TABLET PO SCH (08:18)
--- NOTE | 2019-04-24 11:00 | NUR ---
m/s survey technician: notes case management at bedside and discussing discharge planning.
--- NOTE | 2019-04-24 12:27 | NUR ---
m/s university services program associate: notes c/o 04/19 foot pain, medicated with norco 5/325 1 tab as ordered. instructed to call for assistance.
--- NOTE | 2019-04-24 13:27 | NUR ---
m/s oil well service unit operator: notes resting comfortable in bed with no distress noted. instructed to call for assistance. will continue to monitor.
--- NOTE | 2019-04-24 15:00 | NUR ---
m/s color maker dyer: notes pt resting comfortable with no distress noted at this time. instructed to call for assistance. will continue to monitor.
[2019-04-24 16:00] VITALS: BP 104/66
--- NOTE | 2019-04-24 17:29 | NUR ---
m/s assembly line machine operator: notes c/o 04/19 foot pain, medicated with norco 5/325 1 tab as ordered. instructed to call for assistance.
--- NOTE | 2019-04-24 18:00 | NUR ---
barrie/dahlia senior private client advisor: plastic surgeon consult seen by ld pelletier) with verbal tx order. order carried out and acknowledged. Addendum: 04/25/19 at 1555 by LAURA CHOWDARYN above charting error, wrong pt
--- NOTE | 2019-04-24 18:30 | NUR ---
m/s sql application developer: notes pt resting comfortable in bed. voiced no discomfort. needs attended. call light within reach. will monitor.
--- NOTE | 2019-04-24 18:36 | NUR ---
m/s conductor/engineer: notes hd in progress. pt dozing on and off. needs attended. call light within reach. will continue to monitor.
--- NOTE | 2019-04-24 19:32 | NUR ---
MS/RN OPENING NOTES PT RECEIVED AWAKE. A/OX3. CURRENTLY ON ROOM AIR, BREATHING EVEN AND UNLABORED. DENIES SOB AND PAIN AT THIS TIME. DRESSING TO RIGHT LATERAL CHEST C/D/I. IV TO LFA PATENT AND INTACT. NO NEEDS EXPRESSED AT THIS TIME. STILL TRYING TO FIND PLACEMENT. BED IN LOW/LOCKED POSITION WITH CALL LIGHT IN REACH. HOB ELEVATED. BILAT. UPPER SIDE RAILS IN PLACE. WILL CONTINUE TO MONITOR
[2019-04-24 20:00] VITALS: BP 96/55
[2019-04-24 20:13] VITALS: BP 96/55
[2019-04-24] MEDS: SENNOSIDES 8.6 MG TABLET PO SCH (21:19)
--- NOTE | 2019-04-24 22:48 | NUR ---
MS/RN NOTES PT C/O BILAT. FOOT PAIN 04/19. ADMINISTERED PRN NORCO 5/325 ORDERED. OFFERED TO REPOSITION PT AND OFFLOAD HEELS BUT PT REFUSING DESPITE EDUCATION X3. MEPILEX ON SACRUM FOR PROTECTION. WILL ENCOURAGE TURNING THROUGHOUT SHIFT.
--- NOTE | 2019-04-25 03:56 | NUR ---
MS/RN NOTES PT ASLEEP, BREATHING EVEN AND UNLABORED. REMAINS ON ROOM AIR. IN NO ACUTE DISTRESS. WILL CONTINUE TO MONITOR
--- NOTE | 2019-04-25 06:36 | NUR ---
MS/RN CLOSING NOTES PT AWAKE, SITTING UP IN BED. A/OX3. ON ROOM AIR BREATHING EVEN AND UNLABORED. DENIES SOB AND PAIN AT THIS TIME. PAIN MANAGED WITH PRN NORCO. DRESSING TO RIGHT LATERAL CHEST C/D/I. REFUSED TURNING/REPOSITIONING AND OFFLOADING OF HEELS DESPITE EDUCATION. IV TO LAC PATENT AND INTACT. NO SIGNIFICANT CHANGES OVERNIGHT. BED IN LOW/LOCKED POSITION WITH CALL LIGHT IN REACH. HOB ELEVATED. BILAT. UPPER SIDE RAILS IN PLACE. WILL ENDORSE TO DAY SHIFT RN SHARA.
[2019-04-25] MEDS: PANTOPRAZOLE 40 MG TABLET.DR PO SCH (07:30)
[2019-04-25 08:00] VITALS: BP 103/72
--- NOTE | 2019-04-25 08:00 | NUR ---
m/s precision mechanical instrument maker: initial assessment received pt in bed awake, a/ox4. still for d'c planning. no c/o pain or any discomfort. instructed to call for assistance.
[2019-04-25] MEDS: ASCORBIC ACID 500 MG TABLET PO SCH (08:31)
[2019-04-25] MEDS: ENSURE ENLIVE 237 ML LIQUID (VANILLA) PO SCH ×3 (08:35→17:43)
[2019-04-25] MEDS: FLUTICASONE/VILANTEROL 1 EACH BLST.W.DEV IH SCH (08:36)
[2019-04-25] MEDS: TAMSULOSIN 0.4 MG CAP.SR.24H PO SCH (08:36)
[2019-04-25] MEDS: SPIRONOLACTONE 25 MG TABLET PO SCH (08:36)
[2019-04-25] MEDS: GABAPENTIN 100 MG CAPSULE PO SCH ×3 (08:36→17:42)
[2019-04-25] MEDS: CARVEDILOL 6.25 MG TABLET PO SCH ×2 (08:36→21:00)
[2019-04-25] MEDS: LISINOPRIL (20MG) 20 MG TABLET PO SCH (08:36)
[2019-04-25] MEDS: FUROSEMIDE 40 MG TABLET PO SCH (08:36)
[2019-04-25] MEDS: ASPIRIN EC 81 MG TABLET.DR PO SCH (08:36)
[2019-04-25] MEDS: MULTIVIT W/MINERALS 1 TAB TABLET PO SCH (08:36)
[2019-04-25] MEDS: HYDROCODONE/APAP 5/325MG 1 EACH TABLET PO PRN ×3 (08:37→17:43)
--- NOTE | 2019-04-25 08:37 | NUR ---
m/s administrative and program specialist: notes c/o 04/19 foot pain, medicated with norco 5/325 1 tab as ordered. instructed to call for assistance.
[2019-04-25] MEDS: DOCUSATE SODIUM 100 MG CAPSULE PO SCH (08:39)
--- NOTE | 2019-04-25 09:37 | NUR ---
m/s cvir tech: notes pt verbalized relief of pain. instructed to call for assistance.
--- NOTE | 2019-04-25 11:00 | NUR ---
m/s design maintenance engineer: md visit seen and examined by dr. schreiber at this time. pt clinically stable for discharge. awaiting for placement.
--- NOTE | 2019-04-25 12:00 | NUR ---
m/s dandy operator: pulmo f/u seen by dr. marquez at this time with no new order.
--- NOTE | 2019-04-25 13:21 | NUR ---
m/s bead picker: notes c/o 04/19 foot pain, medicated with norco 5/325 1 tab as ordered. instructed to call for assistance.
--- NOTE | 2019-04-25 14:31 | NUR ---
m/s leak patcher: notes pt verbalized relief of pain. instructed to call for assistance. will continue to monitor.
[2019-04-25 16:00] VITALS: BP 95/60
[2019-04-25 16:10] VITALS: BP 95/60
--- NOTE | 2019-04-25 17:43 | NUR ---
m/s general repairer: notes c/o 04/19 foot pain, medicated with norco 5/325 1 tab as ordered. instructed to call for assistance.
--- NOTE | 2019-04-25 18:43 | NUR ---
m/s hedge fund trader: notes pt resting comfortable in bed. no distress noted. needs attended. will continue to monitor.
--- NOTE | 2019-04-25 19:30 | NUR ---
MS/RN OPENING NOTES PT RECEIVED AWAKE, SITTING UP IN BED. A/OX3. ON ROOM AIR, BREATHING EVEN AND UNLABORED. DENIES SOB AND NOTED TO BILAT. FEET 5/10 AT THIS TIME. RECENTLY RECEIVED PRN NORCO. NO NEEDS EXPRESSED AT THIS TIME. STILL PENDING PLACEMENT. BED IN LOW/LOCKED POSITION WITH CALL LIGHT IN REACH. HOB ELEVATED. BILAT. UPPER SIDE RAILS IN PLACE. WILL CONTINUE TO MONITOR
[2019-04-25 20:00] VITALS: BP 95/63
[2019-04-25] MEDS: SENNOSIDES 8.6 MG TABLET PO SCH (21:13)
[2019-04-26 07:15] LABS: BASOPHILS # (AUTO) 0.1 /CMM (0.0-0.2); BASOPHILS % (AUTO) 1.4 % (0.0-2.0); EOSINOPHILS % (AUTO) 11.8 % (0.0-6.0); HEMATOCRIT 38 % (39-51); HEMOGLOBIN 12.2 g/dL (13.5-17.5); LYMPHOCYTES # (AUTO) 1.2 /CMM (0.8-4.8); LYMPHOCYTES % (AUTO) 20.4 % (20.0-44.0); MEAN CORPUSCULAR HGB CONC 32 g/dl (31.0-36.0); MEAN CORPUSCULAR VOLUME 89 fL (80-96); MONOCYTES # (AUTO) 0.8 /CMM (0.1-1.30); MONOCYTES % (AUTO) 12.9 % (2.0-12.0); NEUTROPHILS # (AUTO) 3.1 /CMM (1.8-8.9); NEUTROPHILS % (AUTO) 53.5 % (43.0-81.0); PLATELET COUNT (AUTO) 136 /CMM (150-450); RED BLOOD CELL COUNT(AUTO) 4.28 MIL/uL (4.5-6.0); WHITE BLOOD COUNT (AUTO) 5.8 K/uL (4.3-11.0)
[2019-04-26] MEDS: PANTOPRAZOLE 40 MG TABLET.DR PO SCH ×2 (07:30→08:09)
[2019-04-26 07:39] LABS: CREATININE 1.3 mg/dL (0.6-1.3); POTASSIUM 5.9 mmol/L (3.5-5.1)
--- NOTE | 2019-04-26 07:53 | NUR ---
MS/RN CLOSING NOTES PT AWAKE, SITTING UP IN BED. A/OX3. ON ROOM AIR, BREATHING EVEN AND UNLABORED. DENIES SOB AND PAIN AT THIS TIME. NO NEEDS EXPRESSED AT THIS TIME. NO SIGNIFCIANT CHANGES OVERNIGHT. STILL PENDING PLACEMENT. BED IN LOW/LOCKED POSITION WITH CALL LIGHT IN REACH. HOB ELEVATED. BILAT. UPPER SIDE RAILS IN PLACE. ENDORSED TO DAY SHIFT RN SHARA
[2019-04-26 08:00] VITALS: BP 95/64
[2019-04-26] MEDS: HYDROCODONE/APAP 5/325MG 1 EACH TABLET PO PRN ×2 (08:08→17:49)
[2019-04-26] MEDS ORDERED: SODIUM POLYSTYRENE SULFONATE 15 G/60 ML BOTTLE PO ONE (08:30)
[2019-04-26] MEDS: CARVEDILOL 6.25 MG TABLET PO SCH ×4 (09:00→21:32)
[2019-04-26] MEDS: MULTIVIT W/MINERALS 1 TAB TABLET PO SCH (09:00)
[2019-04-26] MEDS: ASCORBIC ACID 500 MG TABLET PO SCH (09:00)
[2019-04-26] MEDS: LISINOPRIL (20MG) 20 MG TABLET PO SCH (09:00)
[2019-04-26] MEDS: FLUTICASONE/VILANTEROL 1 EACH BLST.W.DEV IH SCH (09:00)
[2019-04-26] MEDS: DOCUSATE SODIUM 100 MG CAPSULE PO SCH (09:00)
[2019-04-26] MEDS: ENSURE ENLIVE 237 ML LIQUID (VANILLA) PO SCH ×3 (09:24→17:40)
[2019-04-26] MEDS: TAMSULOSIN 0.4 MG CAP.SR.24H PO SCH (09:24)
[2019-04-26] MEDS: GABAPENTIN 100 MG CAPSULE PO SCH ×3 (09:25→17:40)
[2019-04-26] MEDS: ASPIRIN EC 81 MG TABLET.DR PO SCH (09:25)
--- NOTE | 2019-04-26 10:30 | NUR ---
DR. 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 FLATLY REFUSED AND STATES HE WILL WAIT TILL TOMORROW TO TALK TO MD.BOTH NURSES ADVISED PT. AGAINST THIS.PT. STILL REFUSES.TROUBLE LOCATER OFFERED TO GET DR. BOATENG ON PHONE.AGAIN PT. REFUSES.ORDERS GIVEN BY DR. BOATENG.
--- NOTE | 2019-04-26 11:50 | NUR ---
LASIX GIVEN BP UP.
[2019-04-26] MEDS: FUROSEMIDE 40 MG TABLET PO SCH (11:52)
--- NOTE | 2019-04-26 13:50 | NUR ---
BP INCREASED SO RN WENT AHEAD AND GAVE COREG AT THIS TIME.
[2019-04-26 14:44] LABS: CREATININE 1.3 mg/dL (0.6-1.3); POTASSIUM 5.7 mmol/L (3.5-5.1)
[2019-04-26 16:00] VITALS: BP 103/65
--- NOTE | 2019-04-26 17:30 | NUR ---
DR. BOATENG CONTACTED MULTIPLE TIMES AND MADE AWARE PT. STILL REFUSING KAYEXALATE WELL THE FACT THAT AFTERNOON POTASSIUM STILL HIGH AT LEVEL OF 5.7.ADDITIONALLY AWARE THAT HEART MONITOR READS BBB WITH OCASSIONAL PVC'S.NO ORDERS GIVEN.
[2019-04-26 20:00] VITALS: BP 102/67
[2019-04-26] MEDS: SENNOSIDES 8.6 MG TABLET PO SCH ×2 (21:32→21:37)
[2019-04-27] VITALS: BP 91/58
[2019-04-27 04:00] VITALS: BP 104/65
--- NOTE | 2019-04-27 05:00 | NUR ---
MS RN NOTES PT REQUESTED IV-HL TO BE REMOVED. PT STATE "IT HURTS." IV-HL D/CD. PT TOLERATED WELL. TRIED TO INSERT A NEW IV-HL BUT PT REFUSED. EXPLAINED TO HIM IMPORTANCE OF IV ACCESS IN HIS POC BUT PT STILL REFUSED.
--- NOTE | 2019-04-27 06:42 | NUR ---
MS RN NOTES AWAKE & RESPONSIVE. NOT IN ANY DISTRESS. NO SOB NOTED. DENIES ANY PAIN OR DISCOMFORT AT THIS TIME. MONITORED ACCORDINGLY. CALL LIGHT WITHIN REACH. BED IN LOWEST POSITION. SR UP X 3 WITH BED ALARM ON FOR SAFETY. WILL ENDORSE TO NEXT SHIFT.
[2019-04-27 07:04] LABS: CALCIUM, SERUM 9.3 mg/dL (8.5-10.1); CREATININE 1.3 mg/dL (0.6-1.3); POTASSIUM 5.4 mmol/L (3.5-5.1)
[2019-04-27] MEDS: PANTOPRAZOLE 40 MG TABLET.DR PO SCH (07:30)
[2019-04-27 08:00] VITALS: BP 134/77
[2019-04-27] MEDS: ASCORBIC ACID 500 MG TABLET PO SCH (09:00)
[2019-04-27] MEDS: DOCUSATE SODIUM 100 MG CAPSULE PO SCH (09:00)
[2019-04-27] MEDS: MULTIVIT W/MINERALS 1 TAB TABLET PO SCH (09:00)
[2019-04-27] MEDS: FLUTICASONE/VILANTEROL 1 EACH BLST.W.DEV IH SCH (09:00)
--- NOTE | 2019-04-27 09:00 | NUR ---
DR. BOATENG IN TO SEE PT. PLANS FOR DISCHARGE TODAY.
--- NOTE | 2019-04-27 09:15 | NUR ---
DR. BOATENG AWARE OF POTASSIUM,WITH NO ORDERS TO LOWER K LEVEL.
[2019-04-27] MEDS: ASPIRIN EC 81 MG TABLET.DR PO SCH (09:48)
[2019-04-27] MEDS: TAMSULOSIN 0.4 MG CAP.SR.24H PO SCH (09:48)
[2019-04-27] MEDS: CARVEDILOL 6.25 MG TABLET PO SCH (09:48)
[2019-04-27] MEDS: GABAPENTIN 100 MG CAPSULE PO SCH ×2 (09:48→14:03)
[2019-04-27] MEDS: FUROSEMIDE 40 MG TABLET PO SCH (09:50)
--- NOTE | 2019-04-27 10:00 | NUR ---
PT. TAKING MOST OF MEDS,REFUSED SOME.
[2019-04-27] MEDS: HYDROCODONE/APAP 5/325MG 1 EACH TABLET PO PRN (10:23)
--- NOTE | 2019-04-27 10:23 | NUR ---
GIVEN NORCO FOR GENERALIZED PAIN.
[2019-04-27] MEDS: ENSURE ENLIVE 237 ML LIQUID (VANILLA) PO SCH ×2 (10:26→14:03)
--- NOTE | 2019-04-27 12:00 | NUR ---
PT. REFUSED DISCHARGE PHOTOS,DRESSING CHANGE TO RT. SIDED CHEST TUBE SITE,HEALING SMALL INCISION. SITE CLEAN WITH NO DRAINAGE.
--- NOTE | 2019-04-27 13:00 | NUR ---
REPORT CALLED TO NURSE NEGRETE AT [facility].
--- NOTE | 2019-04-27 14:00 | NUR ---
TELE REMOVED.VS STABLE.
--- NOTE | 2019-04-27 15:20 | NUR ---
REFUSED POTASSIUM BLOOD DRAW.
[2019-04-27 16:00] VITALS: BP 101/60
--- NOTE | 2019-04-27 16:35 | NUR ---
AMBULANCE HERE REPORT TO DRIVERS.GIVEN ALL PAPERWORK ALONG WITH RXS.VS STABLE. TRANSPORTED VIA AMBULANCE TO [facility].02 ON AT 2 LITERS
== END 2019-04-27 14:30 | DRG 200 ==
LOC: ER 01:03 → MED 05:36 → TELE 06:00 → MED 04-17 09:24 → TELE 04-26 20:10 → MED 04-27 00:14
PROVIDERS: ADMIT Student in an Organized Health Care Education/Training Program; ATTEND Internal Medicine
PROC: 0W9930Z Drainage of Right Pleural Cavity with Drainage Device, Percutaneous Approach (ICD-10-PCS; principal; 2019-04-16)
DX: J93.83 Other pneumothorax (principal); I50.22 Chronic systolic (congestive) heart failure; J98.19 Other pulmonary collapse; E44.1 Mild protein-calorie malnutrition; Z68.1 Body mass index [BMI] 19.9 or less, adult; D69.6 Thrombocytopenia, unspecified; I11.0 Hypertensive heart disease with heart failure; J44.9 Chronic obstructive pulmonary disease, unspecified; E87.5 Hyperkalemia; K21.9 Gastro-esophageal reflux disease without esophagitis; D64.9 Anemia, unspecified; N40.0 Benign prostatic hyperplasia without lower urinary tract symptoms; Z87.891 Personal history of nicotine dependence; G62.9 Polyneuropathy, unspecified; L89.90 Pressure ulcer of unspecified site, unspecified stage
CPT/HCPCS: 32551; 36415; 71045-TC; 80048-TC; 80061-TC; 83735-TC; 84100-TC; 84443-TC; 84484-TC; 85025-TC; 87081-TC; 93307-TC; 97112-TC; 97530-TC; A6403; G0378; J2270; J3490